=== PATIENT | female | born 1960 | race Caucasian/White ===

== ENCOUNTER 2019-01-19 11:21 | Emergency (ER) | payer BC ==
[2019-01-19 12:16] VITALS: BP 126/91
--- NOTE | 2019-01-19 14:33 | UC ---
Eye Complaint HPI - HPI Summary HPI Summary: Patient comes in with left eye subconjunctival hemorrhage that she noticed one hour SHOP TECH. States she has had 4 left eye subconjunctival hemorrhages in the past 7-10 days but they were all smaller and resolved spontaneously after about a day. She reports that in the past 5 days she has had low level constant headache/lightheadedness. Worse first thing in the morning when she gets up out of bed. Ibuprofen helps. Patient denies any head injury/trauma. Thinks maybe she blew her nose but nothing out of the ordinary. No fever or excessive coughing. Does not wear contact lenses. No personal or family history of bleeding disorders. - History of Current Complaint Chief Complaint: UCDizziness Stated Complaint: LT EYE REDNESS Time Seen by Provider: 01/19/19 14:01 Hx Obtained From: Patient Onset/Duration: Sudden Onset, Lasting Hours, Still Present Timing: Constant Severity Initially: Moderate Severity Currently: Moderate Pain Intensity: 3 Pain Scale Used: 0-10 Numeric Location of Injury: Conjunctiva Aggravating Factor(s): Nothing Alleviating Factor(s): Nothing - Allergies/Home Medications Allergies/Adverse Reactions: Allergies Allergy/AdvReac Type Severity Reaction Status Date / Time No Known Allergies Allergy Verified 01/19/19 12:16 PMH/Surg Hx/FS Hx/Imm Hx Previously Healthy: Yes - Surgical History Surgical History: Yes Surgery Procedure, Year, and Place: D & C 2005 right ankle surg. LIPOMA EXC Rt SHOULDER 1996 - Family History Known Family History: Negative: Blood Disorder Family History: PROSTATE CANCER - BROTHER - Social History Alcohol Use: Weekly Alcohol Amount: 1 DRINK/WEEK Substance Use Type: None Smoking Status (MU): Never Smoked Tobacco Review of Systems All Other Systems Reviewed And Are Negative: Yes Constitutional: Positive: Negative Skin: Positive: Negative Eyes: Positive: Eye Redness. Negative: Blurred Vision, Drainage, Photophobia ENT: Positive: Negative Respiratory: Positive: Negative Cardiovascular: Positive: Negative Gastrointestinal: Positive: Negative Neurological: Positive: Headache Physical Exam Triage Information Reviewed: Yes Appearance: Well-Appearing, No Pain Distress, Well-Nourished Vital Signs: Initial Vital Signs Temp 98 F 01/19/19 12:11 Pulse 65 01/19/19 12:11 Resp 18 01/19/19 12:11 BP 126/91 01/19/19 12:11 Pulse Ox 100 01/19/19 12:11 Vital Signs Reviewed: Yes Eyes: Positive: Other: - LEFT EYE SUBCONJUNCTIVAL HEMORRHAGE NASAL ASPECT. PERRL , EOMI. Negative: Discharge ENT: Positive: Hearing grossly normal, Pharynx normal, TMs normal Neck: Positive: Supple, Nontender, No Lymphadenopathy Respiratory Exam: Normal Cardiovascular Exam: Normal Abdomen Description: Positive: Soft Musculoskeletal: Positive: No Edema Neurological: Positive: Alert, Muscle Tone Normal, Other: - CN II-XII GROSSLY INTACT BILATERALLY. RAPID ALTERNATING MOVEMENTS INTACT. NEG PRONATOR DRIFT. NEG ROMBERG. 5/5 STRENGTH. HEEL TO SCOTT INTACT BILATERALLY. TANDEM GAIT INTACT. FINGER TO NOSE INTACT. Psychological: Positive: Age Appropriate Behavior Skin: Negative: Rashes Eye Complaint Course/Dx - Course Course Of Treatment: PATIENT PRESENTING WITH RECURRENT LEFT EYE SUBCONJUNCTIVAL HEMORRHAGE AND 5 DAYS OF LOW LEVEL DIZZINESS/LIGHTHEADEDNESS AND HEADACHE. NO HISTORY OF BLEEDING DISORDER. RECOMMENDED CT SCAN OF THE HEAD AND LAB DRAWS TODAY TO BEGIN WORKUP. PATIENT DECLINES AND STATES SHE WOULD PREFER TO FOLLOW UP AN OUTPATIENT. COUNSELED ON THE POSSIBILITY OF INTRACRANIAL BLEED AND/OR INTRACRANIAL MASS. PATIENT VERBALIZES UNDERSTANDING AND CONTINUES TO DECLINE. INFORMATION FOR DR. MALONEY WITH OPHTHALMOLOGY AND DR. MADERA WITH NEUROLOGY PROVIDED. PATIENT WILL CALL THEM TODAY. LOW THRESHOLD FOR GOING TO THE EMERGENCY ROOM IF HER SYMPTOMS PERSIST OR WORSEN. - Differential Dx/Diagnosis Provider Diagnosis: Subconjunctival hemorrhage of left eye, Headache Discharge - Sign-Out/Discharge Documenting (check all that apply): Patient Departure All imaging exams completed and their final reports reviewed: No Studies - Discharge Plan Condition: Stable Disposition: HOME Patient Education Materials: Subconjunctival Hemorrhage (ED), General Headache (ED) Referrals: Trisha Mir MD [Primary Care Provider] - If Needed Sly Madera MD [Medical Doctor] - 1 Week Santosh Maloney MD [Medical Doctor] - 3 Days Additional Instructions: GET PLENTY OF REST AND STAY WELL-HYDRATED. AVOID FORCEFULLY BLOWING YOUR NOSE OR RUBBING YOUR EYES. CALL BOTH OPHTHALMOLOGY AND NEUROLOGY TODAY TO SCHEDULE FOLLOW-UP APPOINTMENTS. GO TO THE ER WITHOUT FAIL IF YOU DEVELOP UNEQUAL PUPILS, VISUAL DISTURBANCE, GAIT INSTABILITY, SPEECH DIFFICULTY, NAUSEA/VOMITING , WORSENING HEADACHE, DIZZINESS, CONFUSION, WEAKNESS, FEVER, SPONTANEOUS BLEEDING OR ANY OTHER CONCERNING SYMPTOMS. YOU HAVE DECLINED BOTH IMAGING AND LAB DRAWS TODAY IN FAVOR OF OUTPATIENT FOLLOW-UP WHICH IS A REASONABLE HOWEVER LOW THRESHOLD FOR PRESENTING TO THE EMERGENCY ROOM. - Billing Disposition and Condition Condition: STABLE Disposition: Home
== END 2019-01-19 14:45 | disposition home or self-care (01) ==
LOC: UCEAST 11:21
DX: H11.32 Conjunctival hemorrhage, left eye (principal); R51 Headache
CPT/HCPCS: 99211; G0463